=== PATIENT | female | born 1980 | race Caucasian/White ===

== ENCOUNTER → 2016-09-27 14:52 | Outpatient (CLI) | payer BC | END | disposition home or self-care (01) | LOC: D.MRI 14:52 | DX: M54.16 Radiculopathy, lumbar region (principal) ==

== ENCOUNTER 2016-12-06 05:57 | Day surgery (SDC) | payer BC | END 2016-12-06 11:55 | disposition home or self-care (01) | LOC: D.OPS 05:57 | DX: K42.9 Umbilical hernia without obstruction or gangrene (principal); M54.16 Radiculopathy, lumbar region; Z01.812 Encounter for preprocedural laboratory examination ==

== ENCOUNTER → 2016-12-27 16:35 | Outpatient (CLI) | payer BC ==
[2016-12-06 06:23] VITALS: BMI 23.7
[~2016-12-27 16:35] MED LIST: MEPERIDINE HCL50 MG PO; PHENERGAN25 M1 PO
== END | disposition home or self-care (01) ==
LOC: D.LABREF 16:35
DX: Z20.2 Contact with and (suspected) exposure to infections with a predominantly sexual mode of transmission (principal)